=== PATIENT | female | born 1980 | race Caucasian/White ===

== ENCOUNTER 2016-08-25 21:29 | Emergency (ER) | payer OTHER ==
[~2016-08-25] VITALS: Ht 177.8 cm; Wt 91.0 kg
[~2016-08-25 21:29] MED LIST: DICL75 PO; HYDR-3533 PO; MOTR200T47 PO
[2016-08-25 21:45] VITALS: BP 134/87; PULSE 91; RESP 18; TEMP 98.2; O2SAT 98
--- NOTE | 2016-08-25 22:30 | PD ---
HPI Chief Complaint: ENT Complaint Time Seen by Provider: 22:26 Travel History International Travel<30 days: No Contact w/Intl Traveler<30days: No History of Present Illness HPI Patient comes in complaining of cold-like symptoms ongoing for a week. Patient complaining of sore throat, congestion, and left ear pain. Patient got concerned when her left ear started draining clear pink fluid today. Patient's been taking [id number] cold and flu medication for symptomatic relief. Patient denies any known fevers, nausea, vomiting, diarrhea, headaches, numbness or tingling anywhere. Patient denies anything making it worse. Denies any known sick contacts. PFSH Past Medical History Diminished Hearing: No Headaches: Yes (MIGRAINES) Migraines: Yes Tubal Ligation: Yes Past Surgical History Section: Yes (,,07) Social History Alcohol Use: Yes (OCC) Tobacco Use: Yes (e-cigarettes) Substance Use: No Allergies-Medications (Allergen,Severity, Reaction): Coded Allergies: Codeine (Verified Allergy, Severe, Hives, 08/25/16) Reported Meds & Prescriptions Reported Meds & Active Scripts Active Augmentin (Amoxicillin-Clavulanate) 875-125 mg Tab 875 Mg PO BID 10 Days not for use in CrCl <30 ml/min. Review of Systems Except as stated in HPI: all other systems reviewed are Neg Physical Exam Narrative GENERAL: Well-developed, overly nourished, in no acute distress, and non-ill appearing. SKIN: Focused skin assessment warm and dry. HEAD: Atraumatic. Normocephalic. EYES: Pupils equal and round. EOMI. No scleral icterus. No injection or drainage. ENT: No nasal bleeding or discharge. Mucous membranes pink and moist. Right tympanic membranes pearly hogue. Left tympanic membrane erythematous and bulging. There is no drainage or obvious tearing tympanic membrane. Posterior pharynx shows moderate postnasal drip. Uvula is midline. NECK: Trachea midline. No cervical lymphadenopathy. Supple. No nuclear rigidity. CARDIOVASCULAR: Regular rate and rhythm. No murmur appreciated. RESPIRATORY: No accessory muscle use. No respiratory distress. Clear to auscultation. Breath sounds equal bilaterally. MUSCULOSKELETAL: No obvious deformities. No clubbing. No cyanosis. No edema. Full range of motion. NEUROLOGICAL: Awake and alert. No obvious cranial nerve deficits. Motor grossly within normal limits. Normal speech. PSYCHIATRIC: Appropriate mood and affect; insight and judgment normal. Data Data Last Documented VS Vital Signs Date Time Temp Pulse Resp B/P Pulse Ox O2 Delivery O2 Flow Rate FiO2 08/25/16 21:45 98.2 91 18 134/87 98 [facility] Medical Decision Making Medical Screen Exam Complete: Yes Emergency Medical Condition: Yes Differential Diagnosis Otitis media, otitis externa, ruptured tympanic membrane, viral syndrome, sinusitis, Narrative Course Patient looks great, non-ill appearing. The patient is tolerating fluids and is well hydrated. Appears simple otitis media. No clinical evidence by history or evaluation to suspect meningitis and/or sepsis, nor malignant OE or mastoiditis. I discussed with the patient, diagnosis, plan of care and to follow up with the patients primary physician within the next week. The patient was instructed to return if worsens in anyway, especially if increased pain, persistent fever, worsening headache neck pain or as needed. The patient agreed with plan. Patient in no obvious distress upon re-evaluation. Patient was asked if they wanted to speak to my attending, which the patient did not wish to do at this time. Any questions/concerns in reference to patient diagnosis/condition discussed and clarified prior to patient's discharge. Reinforced sheer importance of close follow up with patient's primary physician or primary care clinic and/or ENT. Instructed patient to return to ED immediately, if symptoms return/worsen. Pt showed understanding of above instructions. Further instructions and recommendations were detailed in discharge paperwork. Pt ambulated without difficulty out of ED at discharge. Diagnosis Primary Impression: Otitis media Qualified Code: H66.92 - Left otitis media, unspecified chronicity, unspecified otitis media type Patient Instructions: General Instructions, Otitis Media (ED) Additional Instructions: Follow-up with your primary care physician and/or ENT in 5-7 days for reevaluation. Take all medication as prescribed. Use [id number] Tylenol and/or ibuprofen as needed for pain and/or fever control. Follow instructions on the packaging. Drink plenty of non-caffeinated and nonalcoholic fluids. Return to the emergency department if symptoms get worse. Med/Other Pt SpecificInfo: Prescription(s) given Scripts Amoxicillin-Clavulanate (Augmentin)875-125 mg [id number] Mg PO BID 10 Days Ref 0 not for use in CrCl <30 ml/min. Prov:Mimi Molina DO 08/25/16 Disposition: 01 DISCHARGE HOME Condition: Stable Javed You Aug 25, 2016 22:30
[2016-08-25] MEDS ORDERED: AUGM875T PO (22:32)
== END 2016-08-25 23:06 | disposition home or self-care (01) ==
LOC: PHEFT 21:29
DX: H66.92 Otitis media, unspecified, left ear (principal); F17.290 Nicotine dependence, other tobacco product, uncomplicated
CPT/HCPCS: 99283

== ENCOUNTER 2017-04-30 19:18 | Observation (INO) | payer OTHER ==
[~2017-04-30] VITALS: Ht 172.7 cm; Wt 94.3 kg
[~2017-04-30 19:18] MED LIST changes: +AUGM875T PO; -DICL75 PO; -HYDR-3533 PO; -MOTR200T47 PO
[2017-04-30 19:34] VITALS: BP 121/67; PULSE 108; RESP 22; TEMP 99; O2SAT 98
--- NOTE | 2017-04-30 20:00 | PD ---
HPI Chief Complaint: Back/ Neck Pain or Injury Time Seen by Provider: 19:47 Travel History International Travel<30 days: No Contact w/Intl Traveler<30days: No Traveled to known affect area: No History of Present Illness HPI The patient is a 36-year-old female that complains of rhinorrhea, sore throat for 1 day. She also has low back pain for 3 days. She states her low back pain radiates into both feet. She denies any bladder or bowel dysfunction. She says she has numbness although they pinprick is normal. She denies any dysuria, frequency or urgency. She states she has had a tubal ligation and cannot be . She does not smoke. The pain is worse on the right than the left and radiation of pain down the right leg is worse on the right than the left [facility] Past Medical History Diminished Hearing: No Headaches: Yes (MIGRAINES) Immunizations Current: No Migraines: Yes Tetanus Vaccination: < 5 Years Influenza Vaccination: No ?: Not LMP: 2 weeks ago Tubal Ligation: Yes Past Surgical History Section: Yes (,05,07) Social History Alcohol Use: Yes ([facility]) Tobacco Use: Yes (QUIT 2 YRS AGO) Substance Use: No Allergies-Medications (Allergen,Severity, Reaction): Coded Allergies: codeine (Unverified Allergy, Severe, Hives, 04/30/17) Reported Meds & Prescriptions Reported Meds & Active Scripts Active No Active Prescriptions or Reported Medications Review of Systems Except as stated in HPI: all other systems reviewed are Neg Physical Exam Narrative GENERAL: The patient is alert, oriented 3 in no respiratory distress. Her vital signs show heart rate of 108, respirations of 22 but otherwise normal. SKIN: Focused skin assessment warm/dry. HEAD: Atraumatic. Normocephalic. EYES: Pupils equal and round. No scleral icterus. No injection or drainage. ENT: No nasal bleeding or discharge. Mucous membranes pink and moist. NECK: Trachea midline. No JVD. CARDIOVASCULAR: Regular rate and rhythm. No murmur appreciated. RESPIRATORY: No accessory muscle use. Clear to auscultation. Breath sounds equal bilaterally. GASTROINTESTINAL: Abdomen soft, non-tender, nondistended. Hepatic and splenic margins not palpable. MUSCULOSKELETAL: No obvious deformities. No clubbing. No cyanosis. No edema. Patellar reflexes are 0+1 bilaterally and Achilles reflexes are +2 bilaterally. The patient has exquisite L5 tenderness midline. Straight leg raising is positive at 30 bilaterally. NEUROLOGICAL: Awake and alert. No obvious cranial nerve deficits. Motor grossly within normal limits. Normal speech. PSYCHIATRIC: Appropriate mood and affect; insight and judgment normal. Data Data Last Documented VS Vital Signs Date Time Temp Pulse Resp B/P (MAP) Pulse Ox O2 Delivery O2 Flow Rate FiO2 04/30/17 21:39 100.2 94 18 135/69 (91) 100 Room Air Orders Orders Urinalysis - C+S If Indicated (04/30/17 19:51) Ed Urine Pregnancytest Poc (04/30/17 19:51) Group A Rapid Strep Screen (04/30/17 19:51) Influenzae A/B Antigen (04/30/17 19:51) Ct Lumb Spine W/O Contrast (04/30/17 20:01) Strep Culture (Group A) (04/30/17 20:00) Chest, Pa & Lat (04/30/17 21:40) Place In Observation (04/30/17 ) Vital Signs (Adult) Q4H (04/30/17 21:43) Activity Oob With Assistance (04/30/17 21:43) Archival Studies Professor / Telemetry .CONTINUOUS (04/30/17 21:43) Diet Heart Healthy (05/01/17 Breakfast) Sodium Chloride 0.9% Flush (Ns Flush) (04/30/17 21:45) Sodium Chloride 0.9% Flush (Ns Flush) (05/01/17 09:00) Basic Metabolic Panel (Bmp) (05/01/17 06:00) Complete Blood Count With Diff (05/01/17 06:00) Case Management Consult (04/30/17 21:43) Naloxone Inj (Narcan Inj) (04/30/17 21:45) Consult Neurosurgery (04/30/17 ) Ketorolac Inj (Toradol Inj) (04/30/17 21:45) Admit Order (Ed Use Only) (04/30/17 21:43) Hydromorphone Pf Inj (Dilaudid Pf Inj) (04/30/17 21:45) Ondansetron Inj (Zofran Inj) (04/30/17 21:45) Sodium Chlor 0.9% 1000 Ml Inj (Ns 1000 M (04/30/17 21:45) Labs Laboratory Tests Test 04/30/17 20:00 Urine Color YELLOW Urine Turbidity CLEAR Urine pH 7.0 Urine Specific [place] 1.015 Urine Protein NEG mg/dL Urine Glucose (UA) NEG mg/dL Urine Ketones TRACE mg/dL Urine Occult Blood TRACE Urine Nitrite NEG Urine Bilirubin NEG Urine Leukocyte Esterase NEG Urine RBC 0-3 /hpf Urine Squamous Epithelial Cells 0-5 /hpf Microscopic Urinalysis Comment CULT NOT INDICATED MDM Medical Decision Making Medical Screen Exam Complete: Yes Emergency Medical Condition: Yes Medical Record Reviewed: Yes Interpretation(s) The CT scan shows large broad-based right paracentral disc herniation which likely impinges on the right S1 nerve root and results in moderate to severe spinal stenosis at this level. Differential Diagnosis Herniated nucleus pulposus, fracture L-spine, acute lumbosacral strain, viral upper respiratory infection, pneumonia-unlikely, urinary tract infection Narrative Course The patient has a herniated nucleus pulposus with moderate to severe stenosis. She will be admitted because of her intractable pain and for neurosurgical consultation. Diagnosis Primary Impression: Herniated nucleus pulposus of lumbosacral region Additional Impression: Intractable back pain Scripts No Active Prescriptions or Reported Meds Scar De Jesus MD Apr 30, 2017 20:00
[2017-04-30 20:11] LABS: BLOOD, URINE TRACE (NEG); GLUCOSE,URINE NEG (NEG); KETONE, URINE TRACE mg/dL (NEG); NITRITE,URINE NEG (NEG)
[2017-04-30 20:22] VITALS: BP 130/73; PULSE 97; RESP 16; TEMP 99.1; O2SAT 99
[2017-04-30 20:26] LABS: COMMENT (UR) CULT NOT INDICATED; CULTURE IF INDICATED CULT NOT INDICATED; RBC, URINE 0-3 /hpf (0-3); SQUAMOUS EPITHELIAL CELL URINE 0-5 /hpf (0-5); URINE COLOR YELLOW (YELLW/STRAW)
--- NOTE | 2017-04-30 21:10 | RADRPT ---
EXAM DATE/TIME: 04/30/2017 20:13 [facility] COMPARISON: No previous studies available for comparison. INDICATIONS : Lumbar radiculopathy. RADIATION DOSE: 30.72 CTDIvol (mGy) MEDICAL HISTORY : Radiculopathy. SURGICAL HISTORY : Tubal ligation. section. ENCOUNTER: Initial ACUITY: 3 days PAIN SCALE: 7/10 LOCATION: Bilateral lower back to feet. TECHNIQUE: Volumetric scanning of the lumbar spine was performed. Multiplanar reconstructions in the sagittal, coronal and oblique axial planes were performed. Using automated exposure control and adjustment of the mA and/or kV according to patient size, radiation dose was kept as low as reasonably achievable t o obtain optimal diagnostic quality images. DICOM format image data is available electronically for review and comparison. FINDINGS: VERTEBRAE: Normal vertebral body height. ALIGNMENT: No evidence of subluxation. T12-L1: The thecal sac has a normal diameter. No evidence of disc bulge or protrusion. The neural foramina are patent bilaterally. L1-L2: The thecal sac has a normal diameter. No evidence of disc bulge or protrusion. The neural foramina are patent bilaterally. L2-L3: The thecal sac has a normal diameter. No evidence of disc bulge or protrusion. The neural foramina are patent bilaterally. L3-L4: The thecal sac has a normal diameter. No evidence of disc bulge or protrusion. The neural foramina are patent bilaterally. L4-L5: The thecal sac has a normal diameter. No evidence of disc bulge or protrusion. The neural foramina are patent bilaterally. L5-S1: There is a large broad-based right paracentral disc herniation which likely impinges upon the right S 1 nerve root and results in moderate to severe spinal stenosis at this level. CONCLUSION: 1. Large broad-based right paracentral disc herniation at L5-S1 which likely impinges upon the right S1 nerve root and results in moderate to severe spinal stenosis at this level. 2. Tiny calcified nonobstructing bilateral renal calculi are noted. Redd Alcantar MD on April 30, 2017 at 21:05 Board Certified Radiologist. This report was verified electronically.
[2017-04-30 21:39] VITALS: BP 135/69; PULSE 94; RESP 18; TEMP 100.2; O2SAT 100
[2017-04-30] MEDS ORDERED: SODIUM CHLORIDE 0.9% FLUSH 10 ML FLUSH IV FLUSH PRN (21:45)
[2017-04-30] MEDS ORDERED: NALOXONE HCL 0.4 MG/ML AMP IV PUSH PRN (21:45)
[2017-04-30] MEDS ORDERED: HYDROmorphone HCL PF 1 MG/ML VIAL IVP ONE (21:45)
[2017-04-30] MEDS ORDERED: ONDANSETRON HCL 4 MG/2 ML VIAL IV ONE (21:45)
[2017-04-30] MEDS: SODIUM CHLOR 0.9% 1000 ML INJ 1,000 ML IV SCH ×2 (21:57→22:36)
--- NOTE | 2017-04-30 22:35 | RADRPT ---
EXAM DATE/TIME: 04/30/2017 22:12 [facility] COMPARISON: No previous studies available for comparison. INDICATIONS : Cold and back pain for several days. MEDICAL HISTORY : None. SURGICAL HISTORY : None. ENCOUNTER: Initial ACUITY: 3 days PAIN SCORE: 8/10 LOCATION: Bilateral chest FINDINGS: PA and lateral views of the chest demonstrate the lungs to be symmetrically aerated without evidence of mass, infiltrate or effusion. There is mild scarring and/or atelectasis at the right lung base. Th ere are multiple overlying echocardiogram leads. The cardiomediastinal contours are unremarkable. Os seous structures are intact. CONCLUSION: Mild scarring and/or atelectasis in the right lower lobe. There is no evidence of pne umonia. Sergio Gibbons MD on April 30, 2017 at 22:33 Board Certified Radiologist. This report was verified electronically.
[2017-04-30 23:15] VITALS: BP 118/77; PULSE 94; RESP 20; TEMP 98.9; O2SAT 100
[2017-05-01] MEDS: KETOROLAC TROMETHAMINE 30 MG/ML (IVP) VIAL IV PUSH PRN ×4 (00:05→22:04)
[2017-05-01 04:00] VITALS: BP 108/71; PULSE 90; RESP 20; TEMP 97; O2SAT 96
[2017-05-01 06:32] LABS: AUTOMATED NEUTROPHIL # 3.4 TH/MM3 (1.8-7.7); BASOPHIL % 0.3 % (0.0-2.0); EOSINOPHIL % 0.5 % (0.0-4.0); HEMATOCRIT 29.1 % (35.0-46.0); LYMPH % 19.5 % (9.0-44.0); LYMPHOCYTE # 0.9 TH/MM3 (1.0-4.8); MEAN CELL VOLUME 64.4 FL (80.0-100.0); MEAN CORPUSCULAR HEMOGLOBIN 19.4 PG (27.0-34.0); MEAN CORPUSCULAR HGB CONC 30.1 % (32.0-36.0); MONO % 10.9 % (0.0-8.0); NEUT % 68.8 % (16.0-70.0); PLATELET COUNT 230 TH/MM3 (150-450); RED BLOOD COUNT 4.53 MIL/MM3 (4.00-5.30); RED CELL DISTRIBUTION WIDTH 16.7 % (11.6-17.2); WHITE BLOOD COUNT 4.9 TH/MM3 (4.0-11.0)
[2017-05-01 06:41] LABS: POTASSIUM 3.5 MEQ/L (3.5-5.1)
[2017-05-01 06:44] LABS: BICARBONATE 24.5 MEQ/L (21.0-32.0)
[2017-05-01 06:50] LABS: HEMO FLAGS AUTO DIFF
[2017-05-01 07:27] LABS: OVALOCYTES 1+ (NORMAL); SCAN/DIFF AUTO DIFF CONFIRMED
[2017-05-01 07:50] VITALS: BP 115/59; PULSE 95; RESP 20; TEMP 98.9; O2SAT 91
[2017-05-01] MEDS: SODIUM CHLORIDE 0.9% FLUSH 10 ML FLUSH IV FLUSH SCH ×2 (08:08→20:48)
[2017-05-01] MEDS ORDERED: CALCIUM CARBONATE 500 MG CHEWABLE TAB CHEW PRN (08:45)
[2017-05-01] MEDS ORDERED: DOCUSATE SODIUM 100 MG CAP PO PRN (08:45)
[2017-05-01] MEDS ORDERED: TEMAZEPAM 15 MG CAP PO PRN (08:45)
[2017-05-01] MEDS ORDERED: MAGNESIUM HYDROXIDE SUSP 30 ML CUP PO PRN (08:45)
[2017-05-01] MEDS ORDERED: ONDANSETRON HCL 4 MG/2 ML VIAL IV PUSH PRN (08:45)
[2017-05-01] MEDS: guaiFENesin/DEXTROMETHORPHAN 200 MG/20 MG/10 ML CUP PO PRN (09:20)
--- NOTE | 2017-05-01 11:10 | HHI.HP ---
[facility] Service [facility] Primary Care Physician No Primary Care Physician Admission Diagnosis herniated nucleus pulposus with intractable pain, viral URI Diagnoses: (1) Intractable back pain Diagnosis: Principal (2) Herniated nucleus pulposus of lumbosacral region Diagnosis: Principal Chief Complaint: Sore throat, sinus congestion Travel History International Travel<30 Days: No Contact w/Intl Traveler <30 Da: No Traveled to Known Affected Are: No History of Present Illness Written by Guillermo De Jesus, acting as scribe for Dr. Dao on 05/01/17 at 10 :59. 36-year-old female with known history of migraine cephalgia, chronic/ intermittent back pain who admitted with suspected acute herniation nucleus pulposus in the lumbar spine. Patient indicates that Saturday she was watching her son play baseball all day where she was sitting in a camping chair. She started noticing some lower back pain at that time and she states that it was difficult for her to stand up straight. She had a walk mildly stooped over. She had a pain of 6 out of 10 on a pain scale. Patient then developed sinus congestion, cough with mucus production, she felt feverish and had chills through Saturday and Saturday. She brought her son to the emergency department because he caught a baseball with his bare hand and wanted to check to make sure that there was no broken bones. While she was there she was sitting in the ER crying because her back started hurting worse. The patient went home and then she came back to the ER for evaluation, she thought her back pain was a symptom of a respiratory infection. She mentioned her back pain to the ER physician who performed a CT scan which did show a herniated disc with moderate to severe spinal stenosis. Because of that reason the ER physician recommended patient be observed in the hospital. The patient states that she has multiple symptoms related to her back with intermittent paresthesia to unilateral and occasionally bilateral lower extremities. Patient states that when she lays on her right side she'll get numbness down the right leg and when she lays on the left side she'll get numbness on the left leg. She states that she has a electrical type sharp pain that shoots down her legs on the lateral aspect of her thigh and calf. Patient does have history of recurrent back pain. She has had previous evaluations in 2007 and 2014 with normal x-rays. Patient does admit that she gets intermittent back pain with paresthesia, numbness. She denies any weakness, falls, stool incontinence, constipation. She states that whenever she coughs she does have urinary incontinence. Review of Systems Ears, nose, mouth, throat: COMPLAINS OF: Throat pain, Running Nose Musculoskeletal: COMPLAINS OF: Back pain Neurologic: COMPLAINS OF: Paresthesias Except as stated in HPI: all other systems reviewed are Neg Past Family Social History Past Medical History Chronic/intermittent back pain Migraine cephalgia Past Surgical History 3, Tubal ligation Reported Medications Reported Meds & Active Scripts Active No Active Prescriptions or Reported Medications Allergies: Coded Allergies: codeine (Unverified Allergy, Severe, Hives, 04/30/17) Family History Reviewed is significant for mother having heart disease with pacemaker, father with chronic back issues Social History Patient quit smoking 2-1/2 years ago, prior to that she smoked one pack a cigarettes a day since she was 11 years old. She drinks alcohol rarely. She does have a history of illicit drug use which she quit using cocaine and heroin 18 years ago Physical Exam Vital Signs Vital Signs Date Time Temp Pulse Resp B/P (MAP) Pulse Ox O2 Delivery O2 Flow Rate FiO2 05/01/17 07:50 98.9 95 20 115/59 (77) 91 05/01/17 04:00 97.0 90 20 108/71 (83) 96 04/30/17 23:15 98.9 94 20 118/77 (91) 100 04/30/17 23:09 04/30/17 22:35 16 04/30/17 21:39 100.2 94 18 135/69 (91) 100 Room Air 04/30/17 20:22 99.1 97 16 130/73 (92) 99 Room Air 04/30/17 19:34 99.0 108 22 121/67 (85) 98 Physical Exam GENERAL: This is a well-nourished, well-developed patient, in no apparent distress. SKIN: No rashes, ecchymoses or lesions. Cool and dry. HEAD: Atraumatic. Normocephalic. No temporal or scalp tenderness. EYES: Pupils equal round and reactive. Extraocular motions intact. No scleral icterus. No injection or drainage. ENT: Nose without bleeding, purulent drainage or septal hematoma. Throat without erythema, tonsillar hypertrophy or exudate. Uvula midline. Airway patent. NECK: Trachea midline. Supple, nontender, no meningeal signs. Intact chin to chest ROM. CARDIOVASCULAR: Regular rate and rhythm without murmurs, gallops, or rubs. RESPIRATORY: Clear to auscultation. Breath sounds equal bilaterally. No wheezes , rales, or rhonchi. GASTROINTESTINAL: Abdomen soft, non-tender, nondistended. No hepato-splenomegaly , or palpable masses. No guarding. EXT: Extremities without clubbing, cyanosis, or edema. MSK: Five out of 5 muscle strength in proximal upper and lower extremities BL. NEUROLOGICAL: Awake and alert. Has diminished patellar reflexes bilaterally. Intact sensation to light touch on both lower extremities. Has positive straight leg test at about 25-30 on the right leg and has increased straight leg testing at about 55-60 on the left leg. Psychiatry: Mood and affect appropriate Laboratory Laboratory Tests Test 04/30/17 20:00 05/01/17 05:35 Urine Color YELLOW Urine Turbidity CLEAR Urine pH 7.0 Urine Specific [place] 1.015 Urine Protein NEG Urine Glucose (UA) NEG Urine Ketones TRACE Urine Occult Blood TRACE Urine Nitrite NEG Urine Bilirubin NEG Urine Leukocyte Esterase NEG Urine RBC 0-3 Urine Squamous Epithelial Cells 0-5 Microscopic Urinalysis Comment CULT NOT INDICATED White Blood Count 4.9 Red Blood Count 4.53 Hemoglobin 8.8 Hematocrit 29.1 Mean Corpuscular Volume 64.4 Mean Corpuscular Hemoglobin 19.4 Mean Corpuscular Hemoglobin Concent 30.1 Red Cell Distribution Width 16.7 Platelet Count 230 Mean Platelet Volume 8.4 Neutrophils (%) (Auto) 68.8 Lymphocytes (%) (Auto) 19.5 Monocytes (%) (Auto) 10.9 Eosinophils (%) (Auto) 0.5 Basophils (%) (Auto) 0.3 Neutrophils # (Auto) 3.4 Lymphocytes # (Auto) 0.9 Monocytes # (Auto) 0.5 Eosinophils # (Auto) 0.0 Basophils # (Auto) 0.0 CBC Comment AUTO DIFF Differential Comment AUTO DIFF CONFIRMED Ovalocytes 1+ Blood Urea Nitrogen 7 Creatinine 0.58 Random Glucose 87 Calcium Level 7.8 Sodium Level 139 Potassium Level 3.5 Chloride Level 107 Carbon Dioxide Level 24.5 Anion Gap 8 Estimat Glomerular Filtration Rate 117 Date/Time Source Procedure Growth Status 04/30/17 20:00 Throat Group A Streptococcus Screen Pending Received Result Diagram: 05/01/17 0535 05/01/17 0535 Imaging Last Impressions Chest X-Ray 04/30/170 Signed Impressions: Service Date/Time: Sunday, April 30, 2017 22:12 - CONCLUSION: Mild scarring and/or atelectasis in the right lower lobe. There is no evidence of pneumonia. Sergio Gibbons MD Lumbar Spine CT 04/30/172000 Signed Impressions: Service Date/Time: Sunday, April 30, 2017 20:13 - CONCLUSION: 1. Large broad-based right paracentral disc herniation at L5-S1 which likely impinges upon the right S1 nerve root and results in moderate to severe spinal stenosis at this level. 2. Tiny calcified nonobstructing bilateral renal calculi are noted. Redd Alcantar MD Capatuli VTE Risk Assessment Caprini VTE Risk Assessment: No/Low Risk (score <= 1) Caprini Risk Assessment Model Point Value = 1 Point Value = 2 Point Value = 3 Point Value = 5 Age 41-60 Minor surgery BMI > 25 kg/m2 Swollen legs Varicose veins or History of unexplained or recurrent spontaneous Oral contraceptives or hormone replacement Sepsis (< 1 month) Serious lung disease, including pneumonia (< 1 month) Abnormal pulmonary function Acute myocardial infarction Congestive heart failure (< 1 month) History of inflammatory bowel disease Medical patient at bed rest Age 61-74 Arthroscopic surgery Major open surgery (> 45 min) Laparoscopic surgery (> 45 min) Malignancy Confined to bed (> 72 hours) Immobilizing plaster cast Central venous access Age >= 75 History of VTE Family history of VTE Factor V Leiden Prothrombin [id number] Lupus anticoagulant Anticardiolipin antibodies Elevated serum homocysteine Heparin-induced thrombocytopenia Other congenital or acquired thrombophilia Stroke (< 1 month) Elective arthroplasty Hip, pelvis, or leg fracture Acute spinal cord injury (< 1 month) Prophylaxis Regimen Total Risk Factor Score Risk Level Prophylaxis Regimen 0-1 Low Early ambulation 2 Moderate Order ONE of the following: *Sequential Compression Device (SCD) *Heparin 5000 units SQ BID 3-4 Higher Order ONE of the following medications: *Heparin 5000 units SQ TID *Enoxaparin/Lovenox 40 mg SQ daily (WT < 150 kg, CrCl > 30 mL/min) *Enoxaparin/Lovenox 30 mg SQ daily (WT < 150 kg, CrCl > 10-29 mL/min) *Enoxaparin/Lovenox 30 mg SQ BID (WT < 150 kg, CrCl > 30 mL/min) AND/OR *Sequential Compression Device (SCD) 5 or more Highest Order ONE of the following medications: *Heparin 5000 units SQ TID (Preferred with Epidurals) *Enoxaparin/Lovenox 40 mg SQ daily (WT < 150 kg, CrCl > 30 mL/min) *Enoxaparin/Lovenox 30 mg SQ daily (WT < 150 kg, CrCl > 10-29 mL/min) *Enoxaparin/Lovenox 30 mg SQ BID (WT < 150 kg, CrCl > 30 mL/min) AND *Sequential Compression Device (SCD) Assessment and Plan Assessment and Plan 36-year-old female who presented to the emergency department because of sinus congestion, sore throat and mentioned back pain Back pain with herniated disc, spinal stenosis -CT scan does show a large broad-based right paracentral disc herniation at L5- S1 which impinges upon the right S1 nerve root and as well as moderate to severe spinal stenosis -Neurosurgery consult has been requested, discussed with neurosurgery who indicates patient needs to be transferred to [facility] for consultation and requested MRI to be performed -Continue pain control - Giving dose of 1x dose of decadron to help w/ inflammation and starting gabapentin and kthermia heating pad Upper respiratory symptoms with rhinorrhea, cough -Influenza testing, strep testing was negative -Likely secondary to adenovirus -Symptomatic treatment with cough suppressant, guaifenesin -Independent review of chest x-ray by Dr. Dao shows no acute infiltrates DVT prevention -Sequential compression devices. This note was transcribed by leif De Jesus. Kvng Kapadia, personally performed the history, physical exam, and medical decision making; and confirmed the accuracy of the information in the transcribed note. Authenticated by Kvng Dao on 12/10 at 8:25. Orders entered by Donnie De Jesus were at my discretion. Guillermo De Jesus May 01, 2017 11:10 Kvng Dao MD May 02, 2017 08:27
[2017-05-01] MEDS ORDERED: DEXAMETHASONE SOD PHOS 4 MG/ML VIAL IV PUSH ONE (11:15)
[2017-05-01] MEDS: GABAPENTIN 300 MG CAP PO SCH ×2 (13:28→17:59)
[2017-05-01] MEDS: ACETAMINOPHEN 325 MG TAB PO PRN (13:30)
--- NOTE | 2017-05-01 15:43 | PD.CONS ---
HPI Service neurosurg Consult Requested By YAKELIN De Jesus Reason for Consult Lumbar HNP Primary Care Physician No Primary Care Physician History of Present Illness This is a 36-year-old female with known history of migraine, chronic/ intermittent back pain who presented to the hospital because of sore throat and sinus congestion. Apparently she was watching her son play baseball all day where she was sitting in a camping chair. She started noticing some low back pain at that time and she states that it was difficult for her to stand up straight. She had a walk mildly stooped over. She had a pain of 6 out of 10 on a pain scale. Patient then developed sinus congestion, cough with mucus production, she felt feverish and had chills through Saturday and Saturday. She brought her son to the emergency department because he caught a baseball with his bare hand and wanted to check to make sure that there was no broken bones. While she was there she was sitting in the ER crying because her back started hurting worse. The patient went home and then she came back to the ER for evaluation CT scan which did show a herniated disc with moderate to severe spinal stenosis. The ER physician recommended patient be observed in the hospital. She denies focal weakness. Denies sensory loss, Denies stool incontinence. She states that whenever she coughs she does have urinary incontinence. Review of Systems Ears, nose, mouth, throat: COMPLAINS OF: Throat pain, Running Nose Musculoskeletal: COMPLAINS OF: Back pain Neurologic: COMPLAINS OF: Paresthesias Except as stated in HPI: all other systems reviewed are Neg Past Family Social History Allergies: Coded Allergies: codeine (Unverified Allergy, Severe, Hives, 04/30/17) Past Medical History Chronic/intermittent back pain Migraine cephalgia Past Surgical History 3, Tubal ligation Reported Medications No Active Prescriptions or Reported Medications Active Ordered Medications Current Medications Sodium Chloride (NS Flush) 2 ml UNSCH PRN IV FLUSH FLUSH AFTER USING IV ACCESS ; Start 04/30/17 at 21:45 Sodium Chloride (NS Flush) 2 ml BID IV FLUSH Last administered on 05/01/17t 08: 08; Start 05/01/17 at 09:00 Naloxone HCl (Narcan Inj) 0.4 mg UNSCH PRN IV PUSH SEE LABEL COMMENTS; Start 04/30/17 at 21:45 Ketorolac Tromethamine (Toradol Inj) 30 mg Q6H PRN IV PUSH pain >5 Last administered on 05/01/17 08:08; Start 04/30/17 at 21:45 Hydromorphone HCl (Dilaudid Pf Inj) 0.5 mg ONCE ONCE IVP Last administered on 04/30/17 21:57; Start 04/30/17 at 21:45; Stop 04/30/17 at 21:52; Status DC Ondansetron HCl (Zofran Inj) 4 mg ONCE ONCE IV Last administered on 04/30/17 21:57; Start 04/30/17 at 21:45; Stop 04/30/17 at 21:52; Status DC Sodium Chloride 1,000 ml @ 2,000 mls/hr Q30M IV Last administered on 22:36; Start 04/30/17 at 21:45; Stop 04/30/17 at 22:44; Status DC Acetaminophen (Tylenol) 650 mg Q4H PRN PO Temp > 100.4 Last administered on 13:30; Start 05/01/17 at 08:45 Ondansetron HCl (Zofran Inj) 4 mg Q6H PRN IV PUSH NAUSEA; Start 05/01/17 at 08: 45 Docusate Sodium (Colace) 100 mg BID PRN PO CONSTIPATION; Start 05/01/17 at 08: 45 Magnesium Hydroxide (Milk Of Magnesia Liq) 30 ml DAILY PRN PO for Severe Constipation; Start 05/01/17 at 08:45 Calcium Carbonate (Tums Chew) 1,000 mg TID PRN CHEW DYSPEPSIA; Start 05/01/17 at 08:45 Temazepam (Restoril) 15 mg HS PRN PO INSOMNIA; Start 05/01/17 at 08:45 Guaifenesin/ Dextromethorphan (Robitussin Dm 200-20 Mg/10 ml Liq) 10 ml Q4H PRN PO COUGH Last administered on 05/01/17 09:20; Start 05/01/17 at 09:15 Dexamethasone Sodium Phosphate (Decadron Inj) 8 mg ONCE ONCE IV PUSH Last administered on 05/01/17 11:23; Start 05/01/17 at 11:15; Stop 05/01/17 at 11:16 ; Status DC Gabapentin (Neurontin) 300 mg TID PO Last administered on 05/01/17 13:28; Start 05/01/17 at 13:00 Family History Reviewed is significant for mother having heart disease with pacemaker, father with chronic back issues Social History Patient quit smoking 2-1/2 years ago, prior to that she smoked one pack a cigarettes a day since she was 11 years old. She drinks alcohol rarely. She does have a history of illicit drug use which she quit using cocaine and heroin 18 years ago Physical Exam Vital Signs Vital Signs Date Time Temp Pulse Resp B/P (MAP) Pulse Ox O2 Delivery O2 Flow Rate FiO2 05/01/17 07:50 98.9 95 20 115/59 (77) 91 05/01/17 04:00 97.0 90 20 108/71 (83) 96 04/30/17 23:15 98.9 94 20 118/77 (91) 100 04/30/17 23:09 04/30/17 22:35 16 04/30/17 21:39 100.2 94 18 135/69 (91) 100 Room Air 04/30/17 20:22 99.1 97 16 130/73 (92) 99 Room Air 04/30/17 19:34 99.0 108 22 121/67 (85) 98 Laboratory Laboratory Tests Test 04/30/17 20:00 05/01/17 05:35 Urine Color YELLOW Urine Turbidity CLEAR Urine pH 7.0 Urine Specific [place] 1.015 Urine Protein NEG Urine Glucose (UA) NEG Urine Ketones TRACE Urine Occult Blood TRACE Urine Nitrite NEG Urine Bilirubin NEG Urine Leukocyte Esterase NEG Urine RBC 0-3 Urine Squamous Epithelial Cells 0-5 Microscopic Urinalysis Comment CULT NOT INDICATED White Blood Count 4.9 Red Blood Count 4.53 Hemoglobin 8.8 Hematocrit 29.1 Mean Corpuscular Volume 64.4 Mean Corpuscular Hemoglobin 19.4 Mean Corpuscular Hemoglobin Concent 30.1 Red Cell Distribution Width 16.7 Platelet Count 230 Mean Platelet Volume 8.4 Neutrophils (%) (Auto) 68.8 Lymphocytes (%) (Auto) 19.5 Monocytes (%) (Auto) 10.9 Eosinophils (%) (Auto) 0.5 Basophils (%) (Auto) 0.3 Neutrophils # (Auto) 3.4 Lymphocytes # (Auto) 0.9 Monocytes # (Auto) 0.5 Eosinophils # (Auto) 0.0 Basophils # (Auto) 0.0 CBC Comment AUTO DIFF Differential Comment AUTO DIFF CONFIRMED Ovalocytes 1+ Blood Urea Nitrogen 7 Creatinine 0.58 Random Glucose 87 Calcium Level 7.8 Sodium Level 139 Potassium Level 3.5 Chloride Level 107 Carbon Dioxide Level 24.5 Anion Gap 8 Estimat Glomerular Filtration Rate 117 Date/Time Source Procedure Growth Status 04/30/17 20:00 Throat Group A Streptococcus Screen - Preliminary NO BETA STREPTOCOCCI ISOLATED AT 24 H... Resulted Result Diagram: 05/01/17 0535 05/01/17 0535 Imaging Last 48 hours Impressions Chest X-Ray 04/30/172139 Signed Impressions: Service Date/Time: Sunday, April 30, 2017 22:12 - CONCLUSION: Mild scarring and/or atelectasis in the right lower lobe. There is no evidence of pneumonia. Sergio Gibbons MD Lumbar Spine CT 04/30/172000 Signed Impressions: Service Date/Time: Sunday, April 30, 2017 20:13 - CONCLUSION: 1. Large broad-based right paracentral disc herniation at L5-S1 which likely impinges upon the right S1 nerve root and results in moderate to severe spinal stenosis at this level. 2. Tiny calcified nonobstructing bilateral renal calculi are noted. Redd Alcantar MD Assessment and Plan Assessment and Plan Caprini VTE Risk Assessment Caprini VTE Risk Assessment Caprini VTE Risk Assessment: Mod/High Risk (score >= 2) Caprini Risk Assessment Model Point Value = 1 Point Value = 2 Point Value = 3 Point Value = 5 Age 41-60 Minor surgery BMI > 25 kg/m2 Swollen legs Varicose veins or History of unexplained or recurrent spontaneous Oral contraceptives or hormone replacement Sepsis (< 1 month) Serious lung disease, including pneumonia (< 1 month) Abnormal pulmonary function Acute myocardial infarction Congestive heart failure (< 1 month) History of inflammatory bowel disease Medical patient at bed rest Age 61-74 Arthroscopic surgery Major open surgery (> 45 min) Laparoscopic surgery (> 45 min) Malignancy Confined to bed (> 72 hours) Immobilizing plaster cast Central venous access Age >= 75 History of VTE Family history of VTE Factor V Leiden Prothrombin [id number] Lupus anticoagulant Anticardiolipin antibodies Elevated serum homocysteine Heparin-induced thrombocytopenia Other congenital or acquired thrombophilia Stroke (< 1 month) Elective arthroplasty Hip, pelvis, or leg fracture Acute spinal cord injury (< 1 month) Prophylaxis Regimen Total Risk Factor Score Risk Level Prophylaxis Regimen 0-1 Low Early ambulation 2 Moderate Order ONE of the following: *Sequential Compression Device (SCD) *Heparin 5000 units SQ BID 3-4 Higher Order ONE of the following medications: *Heparin 5000 units SQ TID *Enoxaparin/Lovenox 40 mg SQ daily (WT < 150 kg, CrCl > 30 mL/min) *Enoxaparin/Lovenox 30 mg SQ daily (WT < 150 kg, CrCl > 10-29 mL/min) *Enoxaparin/Lovenox 30 mg SQ BID (WT < 150 kg, CrCl > 30 mL/min) AND/OR *Sequential Compression Device (SCD) 5 or more Highest Order ONE of the following medications: *Heparin 5000 units SQ TID (Preferred with Epidurals) *Enoxaparin/Lovenox 40 mg SQ daily (WT < 150 kg, CrCl > 30 mL/min) *Enoxaparin/Lovenox 30 mg SQ daily (WT < 150 kg, CrCl > 10-29 mL/min) *Enoxaparin/Lovenox 30 mg SQ BID (WT < 150 kg, CrCl > 30 mL/min) AND *Sequential Compression Device (SCD) Attending Statement 36-year-old female who presented to the emergency department because of sinus congestion, sore throat and mentioned back pain Back pain with herniated disc, spinal stenosis. I have reviewed her clinical and radiological findings. I have discussed the alternative methods of treatment including, conservative management, pain management by an interventional tumbling barrel painter, or a surgical decompression, which should always be a last resort. She has not have conservative treatnment. I recommend a trial of conservative treatment with physical therapy and antiinflammatories. Consider pain management. MRI to be performed in no clinical improvement -pain control with analgesics and antiinflammatories Upper respiratory symptoms with rhinorrhea, cough. Influenza testing, strep testing was negative -Symptomatic treatment with cough suppressant, guaifenesin Pulmonary. Continue aggressive pulmonary toilette, nasotracheal suction, and breathing treatments with nebulizers. Daily PT and OT Nutrition. Tolerating Oral diet Renal. Continue to monitor closely urine output, BUN and creatinine Endocrine. Continue to Monitor serial Acu checks and SSI as needed in detail ID continue to monitor for signs of infection Continue Protonix for stress ulcer prophylaxis Continue Nitin hose and SCD's for DVT prophylaxis Further recommendations will be provided depending on the patient's clinical evaluation and follow up studies. Tommy Grove MD May 01, 2017 15:43
[2017-05-01 16:00] VITALS: BP 104/61; PULSE 102; RESP 18; TEMP 95.6; O2SAT 96
--- NOTE | 2017-05-01 16:04 | RADRPT ---
EXAM DATE/TIME: 05/01/2017 14:26 [facility] COMPARISON: No previous studies available for comparison. INDICATIONS : HNP. Back pain. MEDICAL HISTORY : None. SURGICAL HISTORY : Tubal ligation. section. ENCOUNTER: Initial ACUITY: 3 day PAIN SCORE: 6/10 LOCATION: back TECHNIQUE: Multiplanar multisequence MRI of the lumbar spine was performed without contrast. FINDINGS: The most caudal appearing lumbar vertebra is numbered as L5. VERTEBRAE: Homogeneous signal. Normal alignment. CONUS: Normal level and configuration. T12-L1: The thecal sac has a normal diameter. No evidence of disc bulge or protrusion. The neural foramina are patent bilaterally. L1-L2: The thecal sac has a normal diameter. No evidence of disc bulge or protrusion. The neural foramina are patent bilaterally. L2-L3: The thecal sac has a normal diameter. No evidence of disc bulge or protrusion. The neural foramina are patent bilaterally. L3-L4: The thecal sac has a normal diameter. No evidence of disc bulge or protrusion. The neural foramina are patent bilaterally. L4-L5: The thecal sac has a normal diameter. No evidence of disc bulge or protrusion. The neural foramina are patent bilaterally. L5-S1: A large central and right paracentral disc extrusion is identified. There is significant effacement a nd compression of the right S1 nerve root. CONCLUSION: Large central and right paracentral disc herniation at L5-S1. Otherwise normal exam. Flako Gutierrez MD on May 01, 2017 at 16:00 Board Certified Radiologist. This report was verified electronically.
[2017-05-01] MEDS: ACETAMINOPHEN/HYDROcodone 325 MG/5 MG TAB PO PRN ×2 (18:00→22:04)
[2017-05-01 20:43] VITALS: BP 95/59; PULSE 84; RESP 16; TEMP 96.9; O2SAT 97
[2017-05-02] VITALS: BP 102/56; PULSE 75; RESP 16; TEMP 96.8; O2SAT 97
[2017-05-02] MEDS: ACETAMINOPHEN/HYDROcodone 325 MG/5 MG TAB PO PRN ×4 (02:03→17:18)
[2017-05-02] MEDS: KETOROLAC TROMETHAMINE 30 MG/ML (IVP) VIAL IV PUSH PRN ×2 (04:14→10:24)
[2017-05-02 07:53] VITALS: BP 101/55; PULSE 87; RESP 18; TEMP 97.2; O2SAT 98
[2017-05-02] MEDS ORDERED: BENZOCAINE-MENTHOL (SUGAR FREE) 15 MG-3.6 MG LOZENGE BUCCAL PRN (10:00)
[2017-05-02] MEDS: GABAPENTIN 300 MG CAP PO SCH ×3 (10:24→17:18)
[2017-05-02] MEDS: SODIUM CHLORIDE 0.9% FLUSH 10 ML FLUSH IV FLUSH SCH (10:24)
[2017-05-02] MEDS: guaiFENesin/DEXTROMETHORPHAN 200 MG/20 MG/10 ML CUP PO PRN (10:32)
--- NOTE | 2017-05-02 10:35 | HHI.NSPN ---
(Anel Vera) Note Status Status: Progress Note (Anel Vera) Interval History Interval History This is a 36-year-old female with known history of migraine, chronic/ intermittent back pain who presented to the hospital because of sore throat and sinus congestion. Apparently she was watching her son play baseball all day where she was sitting in a camping chair. She started noticing some low back pain at that time and she states that it was difficult for her to stand up straight. She had a walk mildly stooped over. She had a pain of 6 out of 10 on a pain scale. Patient then developed sinus congestion, cough with mucus production, she felt feverish and had chills through Saturday and Saturday. She brought her son to the emergency department because he caught a baseball with his bare hand and wanted to check to make sure that there was no broken bones. While she was there she was sitting in the ER crying because her back started hurting worse. The patient went home and then she came back to the ER for evaluation CT scan which did show a herniated disc with moderate to severe spinal stenosis. The ER physician recommended patient be observed in the hospital. She denies focal weakness. Denies sensory loss, Denies stool incontinence. She states that whenever she coughs she does have urinary incontinence. 05/02: today she reports minimal back and radicular pain, c/o more of her sore throat and URI. (Anel Vera) Labs, Micro, & Vital Signs Results Date Time Temp Pulse Resp B/P (MAP) Pulse Ox O2 Delivery O2 Flow Rate FiO2 05/02/17 07:53 97.2 87 18 101/55 (70) 98 05/02/17 00:00 96.8 75 16 102/56 (71) 97 05/01/17 20:43 96.9 84 16 95/59 (71) 97 05/01/17 16:00 95.6 102 18 104/61 (75) 96 Constitutional Vital Signs Date Time Temp Pulse Resp B/P (MAP) Pulse Ox O2 Delivery O2 Flow Rate FiO2 05/02/17 07:53 97.2 87 18 101/55 (70) 98 05/02/17 00:00 96.8 75 16 102/56 (71) 97 05/01/17 20:43 96.9 84 16 95/59 (71) 97 05/01/17 16:00 95.6 102 18 104/61 (75) 96 (Anel Vera) Review of Systems Ears, nose, mouth, throat: COMPLAINS OF: Throat pain, Hoarseness, Running Nose , Sinus Pain Respiratory: COMPLAINS OF: Cough Genitourinary: DENIES: Urinary incontinence Musculoskeletal: COMPLAINS OF: Back pain Neurologic: COMPLAINS OF: Paresthesias (Anel Vera) Physical Exam Ms. Brush is alert, awake and oriented to time, place and person. Speech is fluent. Cranial nerve examination: pupils equal, round, and reactive to light. Facial motor are normal and symmetrical. Neck is soft and supple. Muscle strength: In the lower extremities, strength is 5/5 in both iliopsoas, quadriceps, hamstrings, plantar flexion, dorsiflexion, and extensor hallicus longus. Sensory examination is intact to light touch in lower extremities with reports of paresthesias following right S1 distribution. Deep tendon reflexes: In the lower extremities, the patellar are 2+ and Achilles are 1+ left tract to 1+ right. There is a bilateral plantar flexion response. There is no clonus. Cerebellar examination is intact to [id number] test (Anel Vera) Medications Current Medications Current Medications Medications (Trade) Dose Ordered Sig/Wilber Route PRN Reason Start Time Stop Time Status Last Admin Dose Admin Sodium Chloride (NS Flush) 2 ml UNSCH PRN IV FLUSH FLUSH AFTER USING IV ACCESS 04/30/17 21:45 Sodium Chloride (NS Flush) 2 ml BID IV FLUSH 05/01/17 09:00 05/01/17 20:48 Naloxone HCl (Narcan Inj) 0.4 mg UNSCH PRN IV PUSH SEE LABEL COMMENTS 04/30/17 21:45 Ketorolac Tromethamine (Toradol Inj) 30 mg Q6H PRN IV PUSH breakthru pain 04/30/17 21:45 05/02/17 04:14 Acetaminophen (Tylenol) 650 mg Q4H PRN PO Temp > 100.4 05/01/17 08:45 05/01/17 13:30 Ondansetron HCl (Zofran Inj) 4 mg Q6H PRN IV PUSH NAUSEA 05/01/17 08:45 Docusate Sodium (Colace) 100 mg BID PRN PO Mild-moderate constipation 05/01/17 08:45 Magnesium Hydroxide (Milk Of Magnesia Liq) 30 ml DAILY PRN PO Moderate - Severe Constipation 05/01/17 08:45 Calcium Carbonate (Tums Chew) 1,000 mg TID PRN CHEW DYSPEPSIA 05/01/17 08:45 Temazepam (Restoril) 15 mg HS PRN PO INSOMNIA 05/01/17 08:45 Guaifenesin/ Dextromethorphan (Robitussin Dm 200-20 Mg/10 ml Liq) 10 ml Q4H PRN PO COUGH 05/01/17 09:15 05/01/17 09:20 Gabapentin (Neurontin) 300 mg TID PO 05/01/17 13:00 05/01/17 17:59 Acetaminophen/ Hydrocodone Bitart ([place] 5-325 Mg) 1 tab Q4H PRN PO PAIN 1-10 05/01/17 16:15 05/02/17 06:01 Benzocaine/Menthol (Cepacol Extra Amos (Sugar Free)) 1 lozenge Q2HR PRN BUCCAL sore throat 05/02/17 10:00 (Anel Vera) Medical Decision Making MDM Remarks 36 y/o female lumbar and right S1 radiculopathy L5-S1 HNP with focal right NF stenosis, neuro exam without evidence of cauda equina or foot drop (Anel Vera) Plan Plan Remarks surgical vs nonsurgical mgt discussed, recommend trial of lumbar ESIs and Physical Therapy outpatient first cont medical mgt of URI provided lozenges for her sore throat dw pt activity restrictions, avoid excessive coughing as this may exacerbate her radiculopathy clear to dc from NRS standpoint, she may follow up in the office if she fails conservative mgt (Anel Vera) Attending Statement The exam, history, and the medical decision-making described in the above note were completed with the assistance of the mid-level provider. I reviewed and agree with the findings presented. I attest that I had a [id number] encounter with the patient on the same day, and personally performed and documented my assessment and findings in the medical record. (Tommy Grove MD) Anel Vera May 02, 2017 10:35 Tommy Grove MD May 05, 2017 20:19
[2017-05-02] MEDS ORDERED: HYDR-3516 PO (10:41)
[2017-05-02] MEDS ORDERED: DOCU1CAP39 PO (10:41)
[2017-05-02] MEDS ORDERED: IBUP-232 PO (10:41)
--- NOTE | 2017-05-02 10:41 | HHI.DCPOC ---
Discharge Care Plan Diagnosis: (1) Herniated nucleus pulposus of lumbosacral region (2) Intractable back pain Your Health Problems Are: Difficulty with ADL Exercise Tolerance Goals to Promote Your Health * To prevent worsening of your condition and complications * To maintain your health at the optimal level Directions to Meet Your Goals Take your medications as prescribed Follow your dietary instruction Follow activity as directed Keep your appointments as scheduled Take your immunizations and boosters as scheduled If your symptoms worsen call your PCP, if no PCP go to Urgent Care Center or Emergency Room Smoking is Dangerous to Your Health. Avoid second hand smoke Call the 24-hour hour crisis hotline for domestic abuse at [place] Nguyen MD May 02, 2017 10:41
[2017-05-02] MEDS ORDERED: BENZ100 PO (10:42)
--- NOTE | 2017-05-02 10:54 | HHI.PR ---
Subjective Remarks Follow-up lower back pain. Currently without back pain ambulating hallway. Transient mild lower back pain when she coughs. She is stooling. No incontinence. Discussed with RN and physical therapy, stable for discharge Objective Vitals Vital Signs Date Time Temp Pulse Resp B/P (MAP) Pulse Ox O2 Delivery O2 Flow Rate FiO2 05/02/17 07:53 97.2 87 18 101/55 (70) 98 05/02/17 00:00 96.8 75 16 102/56 (71) 97 05/01/17 20:43 96.9 84 16 95/59 (71) 97 05/01/17 16:00 95.6 102 18 104/61 (75) 96 I/O 05/01/17 05/01/17 05/01/17 05/02/17 05/02/17 05/02/17 06:59 14:59 22:59 06:59 14:59 22:59 Intake Total 720 ml 360 ml 480 ml Balance 720 ml 360 ml 480 ml Intake Oral 720 ml 360 ml 480 ml # Voids 3 2 2 # Bowel Movements 0 0 0 Result Diagram: 05/01/17 0535 05/01/17 0535 Imaging Last Impressions Lumbar Spine MRI 05/01/17 0000 Signed Impressions: Service Date/Time: Monday, May 01, 2017 14:26 - CONCLUSION: Large central and right paracentral disc herniation at L5-S1. Otherwise normal exam. Flako Gutierrez MD Chest X-Ray 04/30/17 2140 Signed Impressions: Service Date/Time: Sunday, April 30, 2017 22:12 - CONCLUSION: Mild scarring and/or atelectasis in the right lower lobe. There is no evidence of pneumonia. Sergio Gibbons MD Lumbar Spine CT 04/30/172000 Signed Impressions: Service Date/Time: Sunday, April 30, 2017 20:13 - CONCLUSION: 1. Large broad-based right paracentral disc herniation at L5-S1 which likely impinges upon the right S1 nerve root and results in moderate to severe spinal stenosis at this level. 2. Tiny calcified nonobstructing bilateral renal calculi are noted. Redd Alcantar MD Objective Remarks GENERAL: This is a well-nourished, well-developed patient, in no apparent distress. SKIN: No rashes, ecchymoses or lesions. Cool and dry. CARDIOVASCULAR: Regular rate and rhythm without murmurs, gallops, or rubs. RESPIRATORY: Clear to auscultation. Breath sounds equal bilaterally. No wheezes , rales, or rhonchi. GASTROINTESTINAL: Abdomen soft, non-tender, nondistended. No guarding. EXT: Extremities without clubbing, cyanosis, or edema. MSK: Five out of 5 muscle strength in proximal upper and lower extremities BL. NEUROLOGICAL: Awake and alert. Nonfocal Psychiatry: Mood and affect appropriate Procedures none A/P Problem List: (1) Intractable back pain ICD Code: M54.9 - Dorsalgia, unspecified Status: Acute (2) Herniated nucleus pulposus of lumbosacral region ICD Code: M51.27 - Other intervertebral disc displacement, lumbosacral region Status: Acute Assessment and Plan 36-year-old female who presented to the emergency department because of sinus congestion, sore throat and mentioned back pain Back pain with herniated disc, spinal stenosis -CT scan does show a large broad-based right paracentral disc herniation at L5- S1 which impinges upon the right S1 nerve root and as well as moderate to severe spinal stenosis -Neurosurgery consult has been requested, recommended conservative management at this time -Continue pain control -Improving continue Lortab as needed counseled regarding narcotics and start scheduled NSAIDs. Continue PT Upper respiratory symptoms with rhinorrhea, cough -Influenza testing, strep testing was negative -Likely secondary to adenovirus -Symptomatic treatment with cough suppressant, guaifenesin -Chest x-ray shows no acute infiltrates DVT prevention -Sequential compression devices. Discharge Planning Discharge patient to home Condition on discharge: Improved Regular Diet as tolerated Ad Tyra activity see PT restrictions Rx written: Colace, Tessalon, Lortab and ibuprofen Follow-up with primary care physician , pain management and PT [place] Nguyen MD May 02, 2017 10:54
[2017-05-02 11:38] VITALS: BP 110/56; PULSE 84; RESP 18; TEMP 96.1; O2SAT 97
[2017-05-02] MEDS: ACETAMINOPHEN 325 MG TAB PO PRN (13:22)
== END 2017-05-02 17:49 | disposition home or self-care (01) ==
LOC: PHED 19:18 → PHEDA 21:45 → PH3A 23:05 → N06B 05-01 12:45 → N06A 05-01 13:09
PROVIDERS: ADMIT Internal Medicine; ATTEND Internal Medicine
DX: M51.27 Other intervertebral disc displacement, lumbosacral region (principal); M48.07 Spinal stenosis, lumbosacral region; J02.9 Acute pharyngitis, unspecified; R32 Unspecified urinary incontinence; J98.11 Atelectasis; Z87.891 Personal history of nicotine dependence
CPT/HCPCS: 71020; 72131; 72148; 80048; 81001; 84703; 85025; 87081; 87804; 87880; 96361; 96374; 96375; 96376; 97162; 99285; G0378; G8987; G8988; J1100; J1170; J1885; J2405; J7030

== ENCOUNTER 2017-08-23 02:25 | Emergency (ER) | payer OTHER ==
[~2017-08-23] VITALS: Ht 177.8 cm; Wt 91.2 kg
[~2017-08-23 02:25] MED LIST changes: -AUGM875T PO; +BENZ100 PO; +DOCU1CAP39 PO; +HYDR-3516 PO; +IBUP-232 PO
[2017-08-23 02:29] VITALS: BP 119/77; PULSE 95; RESP 18; TEMP 97.5; O2SAT 99
== END 2017-08-23 06:30 | disposition left against medical advice (07) ==
LOC: PHED 02:25
DX: J02.9 Acute pharyngitis, unspecified (principal); Z53.21 Procedure and treatment not carried out due to patient leaving prior to being seen by health care provider
CPT/HCPCS: 99281